=== PATIENT | male | born 1980 | race Caucasian/White ===

== ENCOUNTER 2018-12-03 15:03 | Emergency (ER) | payer BC ==
[2018-12-03 15:43] VITALS: BP 144/96
--- NOTE | 2018-12-03 15:47 | UC ---
Abdominal Pain Male HPI - HPI Summary HPI Summary: 38 yo male presents with right abdominal pain for the last 2 weeks. He tells me that the right side of his abdomen is painful with movement, lifting, pushing and pulling. He states that he does not recall a specific injury, but notes that he does do a lot of manual labor at work. Today he was pulling something at work and felt a strain in this area that has been painful since. He has not taken anything OTC for his symptoms. He denies fever, chills, SOB, chest pain, n /v/d/c, dysuria. No flank pain. - History of Current Complaint Chief Complaint: UCAbdominalPain Stated Complaint: RIGHT SIDE LOWER ABD PAIN Time Seen by Provider: 12/03/18 15:47 Hx Obtained From: Patient Onset/Duration: Gradual Onset Severity Initially: Mild Severity Currently: Mild Pain Intensity: 4 Pain Scale Used: 0-10 Numeric - Allergies/Home Medications Allergies/Adverse Reactions: Allergies Allergy/AdvReac Type Severity Reaction Status Date / Time No Known Allergies Allergy Verified 12/03/18 15:43 Home Medications: Home Medications NK [No Home Medications Reported] 12/03/18 [History Confirmed 12/03/18] PMH/Surg Hx/FS Hx/Imm Hx - Additional Past Medical History Additional PMH: None - Surgical History Surgical History: Yes Surgery Procedure, Year, and Place: hernia - Family History Known Family History: Positive: Non-Contributory - Social History Occupation: Employed Full-time Lives: With Family Alcohol Use: Occasionally Substance Use Type: None Smoking Status (MU): Light Every Day Tobacco Smoker Review of Systems All Other Systems Reviewed And Are Negative: No Constitutional: Positive: Negative Skin: Positive: Negative Respiratory: Positive: Negative Cardiovascular: Positive: Negative Gastrointestinal: Positive: Abdominal Pain Genitourinary: Positive: Negative Neurovascular: Positive: Negative Musculoskeletal: Positive: Other: - Abdominal pain Neurological: Positive: Negative Psychological: Positive: Negative Physical Exam - Summary Physical Exam Summary: GENERAL: NAD. WDWN. No pain distress. SKIN: No rashes, sores, lesions, or open wounds. NECK: Supple. Nontender. No lymphadenopathy. CHEST: CTAB. No r/r/w. No accessory muscle use. Breathing comfortably and in no distress. CV: RRR. Pulses intact. Cap refill <2seconds ABDOMEN: Soft. NTTP. No distention or guarding. No CVA tenderness. Bowel sounds present. No umbilical or ventral hernia appreciated. MSK: Right abdominal oblique slight ttp. Pain at this area with trunk twisting and flexion at waist. NEURO: Alert. PSYCH: Age appropriate behavior. Triage Information Reviewed: Yes Vital Signs: Initial Vital Signs Temp 98.0 F 12/03/18 15:38 Pulse 80 12/03/18 15:38 Resp 16 12/03/18 15:38 BP 144/96 12/03/18 15:38 Pulse Ox 100 12/03/18 15:38 Vital Signs Reviewed: Yes Abd Pain Male Course/Dx - Course Course Of Treatment: Suspect MSK strain. He is concerned today about an underlying emergent condition. I discussed with him that I cannot evaluate his abdominal pain in the Urgent Care and recommended that he go to the ER for likely CT scan of the area. At this time I have a low suspicion for incarcerated hernia, appendicitis, SBO, or an emergent etiology. Recommended to try to refrain from heavy lifting and to take ibuprofen as directed for discomfort - Differential Dx/Clinical Impression Provider Diagnosis: Abdominal muscle strain Discharge ED - Sign-Out/Discharge Documenting (check all that apply): Patient Departure All imaging exams completed and their final reports reviewed: No Studies - Discharge Plan Condition: Stable Disposition: HOME Patient Education Materials: Abdominal Pain (ED) Referrals: No Primary Care Phys,NOPCP [Primary Care Provider] - [facility] [place] [facility] [Outside] - As Soon As Possible Additional Instructions: If you develop a fever, shortness of breath, chest pain, new or worsening symptoms - please call your PCP or go to the ED immediately. Your blood pressure was high at todays visit. Please see your primary provider within 4 weeks for recheck and re-evaluation. Your exam today does not appear to be emergent, but I recommend that you go to the ER for further evaluation and possible CT scan of your abdomen. If you do not go to the ER - please follow up with a primary doctor within 1 week - Billing Disposition and Condition Condition: STABLE Disposition: Home
== END 2018-12-03 16:09 | disposition home or self-care (01) ==
LOC: UCCORT 15:03
DX: S39.011A Strain of muscle, fascia and tendon of abdomen, initial encounter (principal); F17.290 Nicotine dependence, other tobacco product, uncomplicated; X58.XXXA Exposure to other specified factors, initial encounter; Y92.9 Unspecified place or not applicable
CPT/HCPCS: 81003; 99201; G0463